=== PATIENT | male | born 1990 | race Caucasian/White ===

== ENCOUNTER 2022-06-13 17:31 | Inpatient (IN) | payer OTHER ==
[~2022-06-13] VITALS: Ht 177.8 cm; Wt 68.2 kg
[2022-06-13] MEDS ORDERED: folic acid 1mg/0.2ml inj IV ONE (18:40)
[2022-06-13] MEDS ORDERED: thiamine 100mg/ml 2ml inj. IV ONE (18:40)
[2022-06-13] MEDS ORDERED: LORazepam 2 mg/ml vial IV ONE ×2 (18:40→19:40)
[2022-06-13] MEDS ORDERED: normal saline 1000ML IV soln IV ONE (18:40)
[2022-06-13 18:59] LABS: BASOPHILS # (AUTO) 0.1 X10'3 (0-0.2); BASOPHILS % (AUTO) 0.7 % (0-1); EOSINOPHILS % (AUTO) 0 % (0-6); HEMOGLOBIN 12.2 g/dl (14.0-17.9); LYMPHOCYTES # (AUTO) 0.6 X10'3 (1.1-4.8); LYMPHOCYTES % (AUTO) 3.6 % (21-51); MEAN CORPUSCULAR HEMOGLOBIN 34.9 PG (27.0-31.0); MEAN CORPUSCULAR HGB CONC 34.9 g/dL (33.0-36.5); MEAN PLATELET VOLUME 7.7 FL (7.4-10.4); MONOCYTES # (AUTO) 1.6 X10'3 (0-0.9); MONOCYTES % (AUTO) 10.8 % (2-12); NEUTROPHILS # (AUTO) 12.9 X10'3 (1.8-7.7); NEUTROPHILS % (AUTO) 84.9 % (42-75); PLATELET COUNT 293 X10'3 (140-440); RED CELL DISTRIBUTION WIDTH 12.3 % (11.5-14.5); WHITE BLOOD COUNT 15.2 X10'3 (4.5-11.0)
[2022-06-13 19:16] LABS: ALANINE AMINOTRANSFERASE 42 U/L (12-78); ALBUMIN 4.2 G/DL (3.4-5.0); ALBUMIN/GLOBULIN RATIO 1.2 (1.1-1.5); ALKALINE PHOSPHATASE 68 IU/L (46-116); ANION GAP 11 (8-16); ASPARTATE AMINO TRANSFERASE 45 U/L (10-37); BLOOD UREA NITROGEN 16 MG/DL (7-18); BUN/CREATININE RATIO 14.8 (5.4-32.0); CALCIUM 9.1 MG/DL (8.5-10.1); CHLORIDE 101 MMOL/L (99-107); CREATININE 1.08 MG/DL (0.60-1.10); GLUCOSE 111 MG/DL (70-104); POTASSIUM 3.8 MMOL/L (3.5-5.1); SODIUM 137 MMOL/L (135-145); TOTAL CARBON DIOXIDE 25.5 MMOL/L (24-32); TOTAL PROTEIN 7.6 G/DL (6.4-8.2); eGFR 80 ML/MIN
[2022-06-13 19:24] LABS: ETHANOL < 0.010 GM/DL (0.0-0.010); MAGNESIUM 2.3 MG/DL (1.5-2.4)
[2022-06-13 19:26] LABS: CREATINE KINASE 1107 U/L (39-308)
--- NOTE | 2022-06-13 20:46 | NUR ---
PT YELLING, KICKING, ACTIVELY HALLUCINATING. ALREADY GIVEN ATIVAN 8MG IV. NEED TO HEAD CT. CALLED PHARMACY TO URGE FOR ATIVAN THERE IS NO ATIVAN IN THE ER.
[2022-06-13] MEDS: LORazepam 2 mg/ml vial IV PRN ×5 (20:59→23:45)
[2022-06-13] MEDS: haloperidol lactate 5mg/ml inj IM PRN ×2 (21:01→23:09)
--- NOTE | 2022-06-13 21:03 | NUR ---
PT MEDICATED. CT CALLED. THEY WILL COME SHORTLY TO TAKE HEAD CT OF PT.
--- NOTE | 2022-06-13 21:25 | NUR ---
TAKING PT TO CT. PT IS STILL NOT SUFFICIENTLY SEDATED. CONSULTED WITH FRANCES; RECOMMENDS TAKING PT TO CT ANYWAY IT IS VITAL TO RULEOUT BRAIN BLEED. CT TEAM HERE. LAW ENFORCEMENT AT BEDSIDE WELL.
[2022-06-13] MEDS: ringers solution, lacted 1,000 ML IV SCH (22:05)
[2022-06-13] MEDS ORDERED: LORazepam 2 mg/ml vial IV PRN ×2 (22:05→22:35)
[2022-06-13] MEDS ORDERED: magnesium 2GM in 50ml NS 50 ML IV PRN (22:05)
[2022-06-13] MEDS ORDERED: magnesium 4gm in 100ml NS 100 ML IV PRN (22:05)
[2022-06-13] MEDS ORDERED: acetaminophen 325mg tablet PO PRN (22:05)
[2022-06-13] MEDS ORDERED: potassium CL 10mEq/100ml bag 100 ML IV PRN (22:05)
[2022-06-13] MEDS ORDERED: NORMAL SALINE IV ONE (22:05)
[2022-06-13] MEDS ORDERED: POTASSIUM BICARB 20meq eff tab 20 MEQ TABLET.EFF PO PRN ×2 (22:05)
[2022-06-13] MEDS ORDERED: sodium phosphate inj. 15 MMOL in dextrose 5%-water 250 ML IV PRN (22:05)
[2022-06-13] MEDS ORDERED: THIAMINE IV ONE (22:05)
[2022-06-13] MEDS ORDERED: dicyclomine 10 MG capsule PO PRN (22:05)
[2022-06-13] MEDS ORDERED: morphine 4 MG/ML inj SYRINge IV PRN (22:05)
[2022-06-13] MEDS ORDERED: Neutra Phos packet PO PRN (22:05)
[2022-06-13] MEDS ORDERED: dextrose 50%-water 50ml dispensing syringe IV PRN (22:05)
[2022-06-13] MEDS ORDERED: sodium phosphate inj. 30 MMOL in dextrose 5%-water 250 ML IV PRN (22:05)
[2022-06-13 22:37] LABS: CLARITY,URINE CLEAR (Clear); COLOR,URINE YELLOW (Yellow); GLUCOSE, URINE NEGATIVE (Neg); KETONES,URINE 15 mg/dl (Neg); LEUKOCYTE ESTERASE ,URINE NEGATIVE (Neg); NITRITES, URINE NEGATIVE (Neg); OCCULT BLOOD,URINE NEGATIVE (Neg); PH,URINE 6.5 (4.8-8.0); PROTEIN,URINE NEGATIVE (Neg); UROBILINOGEN,URINE 0.2 E.U/dL (0.2-1.0)
[2022-06-13 22:40] LABS: UA COLLECTION TYPE STRAIGHT CATH
[2022-06-13 22:42] LABS: URINE AMPHETAMINE SCREEN NEGATIVE (Neg); URINE BARBITUATE SCREEN NEGATIVE (Neg); URINE BENZODIAZEPINES SCREEN POSITIVE (Neg); URINE CANNABINOID SCREEN POSITIVE (Neg); URINE COCAINE SCREEN NEGATIVE (Neg); URINE METHADONE SCREEN NEGATIVE (Neg); URINE OPIATE SCREEN NEGATIVE (Neg); URINE PHENCYCLIDINE SCREEN NEGATIVE (Neg)
--- NOTE | 2022-06-13 23:31 | NUR ---
CALLED PHARMACY. WE RAN OUT OF ATIVAN IN THE ER.
[2022-06-13 23:41] LABS: LIPASE < 50 U/L (73-393)
--- NOTE | 2022-06-13 23:44 | NUR ---
PHARMACY IS PREPARING FOLIC ACID AND THIAMINE
--- NOTE | 2022-06-14 00:19 | NUR ---
PT IS FINALLY SLEEPING. EQUAL RISE AND FALL OF CHEST. LAW ENFORCEMENT AT BEDSIDE.
[2022-06-14] MEDS ORDERED: NORMAL SALINE IV ONE ×2 (00:25→00:31)
[2022-06-14] MEDS ORDERED: THIAMINE IV ONE ×2 (00:25→00:31)
[2022-06-14] MEDS: midazolam 1 mg/ML 2ml injection IV PRN ×3 (00:29→02:25)
--- NOTE | 2022-06-14 00:31 | NUR ---
PT AWAKE AGAIN. ATTEMPTING TO GET OUT OF GURNEY. CAN NOT OBEY SIMPLE COMMANDS.
--- NOTE | 2022-06-14 00:32 | NUR ---
PT MEDICATED WITH FIRST DOSE OF VERSED
[2022-06-14] MEDS: LORazepam 2 mg/ml vial IV PRN ×6 (00:48→19:37)
--- NOTE | 2022-06-14 00:50 | NUR ---
PHARMACY CALLED. PHARMACIST REPORTS HE SPOKE WITH POTATO CHIP PROCESSING SUPERVISOR WAREHOUSE ANALYST, LEV, AND WAS TOLD NOT TO PREPARE FOLIC ACID HE WANTS THAT ORDER DISCONTINUED. LEV ALSO KNOWS PT HAS RECEIVED THIAMINE 200 IVP; STILL WANTS PT TO BE GIVEN THIAMINE 300 IV PER PHARMACIST. PHARMACY HAS PREPARED THE NEW ORDER FOR THIAMINE AND DELIVERED IT TO RN.
--- NOTE | 2022-06-14 00:54 | NUR ---
PT MEDICATED AGAIN. STILL ATTEMPTING TO GET OUT OF GURNEY
--- NOTE | 2022-06-14 01:25 | NUR ---
SECOND DOSE OF VERSED WAS GIVEN. PT IS FINALLY SLEEPING AGAIN.
--- NOTE | 2022-06-14 02:06 | NUR ---
TAKING PT TO CT AGAIN. MEDICATED WITH MORE ATIVAN. LAW ENFORCEMENT AT BEDSIDE,.
--- NOTE | 2022-06-14 02:37 | NUR ---
PT GIVEN THIRD AND FINAL ALLOWED DOSE OF VERSED. PT IS FLAILING HIS ARMS AND LEGS. CALLED SUPERVISOR WIRE ROPE FABRICATION, LEV, AND OBTAINED A TELEPHONE ORDER FOR PRECEDEX TO BE STARTED AT 0.8 AND CAN BE TITRATED TO A MAX OF 1.4. ALSO OBTAINED ORDER FOR SOFT RESTRAINTS I WAS CONCERNED THAT HAND CUFFS ARE TOO SHARP FOR PT.
[2022-06-14] MEDS ORDERED: dexmedetomidin/NS 400mcg/100ml 100 ML IV SCH (02:40)
--- NOTE | 2022-06-14 02:52 | NUR ---
CALLED PHARMACY. THEY ARE PREPARING PRECEDEX WE ARE OUT OF STOCK IN [place].
--- NOTE | 2022-06-14 03:12 | NUR ---
PHARMACY PREPARED PRECEDEX AND DELIVERED MEDICATION. HOLDING IT FOR NOW PT IS SLEEPING. EQUAL RISE AND FALL OF CHEST. PT REMAINS ON LOPPER.
--- NOTE | 2022-06-14 03:14 | NUR ---
Note renata in EDM - 06/14/22 at 0315 by [email or web address] LAW ENFORCEMENT REMAINS AT BEDSIDE WELL. HANDCUFFS ARE OFF. SOFT RESTRAINTS PLACED.
--- NOTE | 2022-06-14 03:15 | NUR ---
LAW ENFORCEMENT AT BEDSIDE.
--- NOTE | 2022-06-14 03:16 | NUR ---
PT HAD TWO PAIRS OF HAND CUFFS ON PREVIOUSLY. LAW ENFORCEMENT REMOVED ONE PAIR AND WE PUT SOFT RESTRAINTS INSTEAD. ONE PAIR OF HAND CUFFS ARE STILL ON LAW ENFORCEMENT STATED IT IS THEIR POLICY FOR PATIENTS IN CUSTODY.
[2022-06-14] MEDS: dexmedetomidine inj. 400 MCG in normal saline 100ml IV soln 96 ML IV SCH ×3 (03:44→17:36)
--- NOTE | 2022-06-14 04:00 | NUR ---
PT STARTED FLAILING HIS ARMS AND MUMBLING TO PEOPLE THAT ARE NOT IN THE ROOM AGAIN. PRECEDEX HAS BEEN STARTED. NOW PT IS SLEEPING. EQUAL RISE AND FALL OF CHEST. STABLE VITALS.
--- NOTE | 2022-06-14 04:39 | NUR ---
PT JERKING AND FLAILING ARMS AGAIN. TITRATED PRECEDEX UP PER PROTOCOL
[2022-06-14] MEDS: ringers solution, lacted 1,000 ML IV SCH (05:08)
--- NOTE | 2022-06-14 05:12 | NUR ---
PT SLEEPING. EQUAL RISE AND FALL OF CHEST. DEMONSTRATOR ELECTRIC GAS APPLIANCES REMAINS ON PT. LAW ENFORCEMENT AT BEDSIDE.
--- NOTE | 2022-06-14 05:25 | NUR ---
CALLED AND GAVE CRACKER OFF, LEV, UPDATE ON PT. PT SLEEPING. EQUAL RISE AND FALL OF CHEST. VITALS STABLE.
--- NOTE | 2022-06-14 05:47 | NUR ---
TITRATED PRECEDEX UP AGAIN PT STARTED FLAILING ARMS AGAIN. PT NOW SLEEPING. EQUAL RISE AND FALL OF CHEST. VITALS STABLE. LAW ENFORCEMENT REMAINS AT BEDSIDE.
--- NOTE | 2022-06-14 07:10 | NUR ---
Called drug and alcohol counselor Dr. Roman, received VO to change IV fluids. Pt to receive D5 banana bag at 125 ml /hr.
[2022-06-14] MEDS: ondansetron/PF 4mg/2ml inj IV PRN (07:51)
[2022-06-14] MEDS ORDERED: folic acid 1mg/0.2ml inj IV SCH (08:00)
[2022-06-14] MEDS: thiamine 100mg tablet PO SCH (08:00)
[2022-06-14] MEDS: K and/or MAG REPLACEMENT MC SCH (08:00)
[2022-06-14] MEDS: folic acid 1mg tablet PO SCH (08:00)
[2022-06-14] MEDS: LORazepam 2 mg/ml vial IV SCH ×3 (08:00→19:23)
[2022-06-14] MEDS ORDERED: thiamine 100mg/ml 2ml inj. IV SCH (08:00)
[2022-06-14 08:06] LABS: BASOPHILS # (AUTO) 0.1 X10'3 (0-0.2); BASOPHILS % (AUTO) 0.8 % (0-1); EOSINOPHILS # (AUTO) 0.1 X10'3 (0-0.9); EOSINOPHILS % (AUTO) 0.5 % (0-6); HEMATOCRIT 31.6 % (42.0-52.0); HEMOGLOBIN 10.6 g/dl (14.0-17.9); LYMPHOCYTES # (AUTO) 1.3 X10'3 (1.1-4.8); LYMPHOCYTES % (AUTO) 11.2 % (21-51); MEAN CORPUSCULAR HEMOGLOBIN 34.9 PG (27.0-31.0); MEAN CORPUSCULAR HGB CONC 33.7 g/dL (33.0-36.5); MEAN CORPUSCULAR VOLUME 103.7 FL (78-98); MEAN PLATELET VOLUME 7.6 FL (7.4-10.4); MONOCYTES # (AUTO) 1.7 X10'3 (0-0.9); MONOCYTES % (AUTO) 14.5 % (2-12); NEUTROPHILS # (AUTO) 8.5 X10'3 (1.8-7.7); PLATELET COUNT 244 X10'3 (140-440); RED BLOOD COUNT 3.05 X10'6 (4.70-6.10); RED CELL DISTRIBUTION WIDTH 12.5 % (11.5-14.5); WHITE BLOOD COUNT 11.6 X10'3 (4.5-11.0)
[2022-06-14] MEDS: dextrose 5%-lactated ringers 1,000 ML IV SCH ×2 (08:09→16:39)
[2022-06-14 08:43] LABS: ALANINE AMINOTRANSFERASE 38 U/L (12-78); ALBUMIN 3.1 G/DL (3.4-5.0); ALKALINE PHOSPHATASE 56 IU/L (46-116); ANION GAP 11 (8-16); ASPARTATE AMINO TRANSFERASE 55 U/L (10-37); BILIRUBIN,TOTAL 1.4 MG/DL (0.1-1.0); BLOOD UREA NITROGEN 10 MG/DL (7-18); BUN/CREATININE RATIO 10.9 (5.4-32.0); CALCIUM 8.3 MG/DL (8.5-10.1); CHLORIDE 108 MMOL/L (99-107); CREATININE 0.92 MG/DL (0.60-1.10); GLUCOSE 77 MG/DL (70-104); MAGNESIUM 1.9 MG/DL (1.5-2.4); POTASSIUM 3.7 MMOL/L (3.5-5.1); SODIUM 140 MMOL/L (135-145); TOTAL CARBON DIOXIDE 20.8 MMOL/L (24-32); TOTAL PROTEIN 6.1 G/DL (6.4-8.2); eGFR > 90 ML/MIN
[2022-06-14 08:48] LABS: CREATINE KINASE 1654 U/L (39-308)
[2022-06-14] MEDS: pantoprazole 40MG/NS 100ML BAG 100 ML IV SCH (09:00)
--- NOTE | 2022-06-14 09:45 | NUR ---
Pt seen by toy assembler Dr. Roman, received VO for pt to change Ativan routine med to Ativan 2mg IV q 6 hrs and pt to remain with ativan protocol
[2022-06-14] MEDS ORDERED: WHISKEY PO SCH (09:55)
[2022-06-14] MEDS ORDERED: NO HOME MEDS (13:03)
[2022-06-14] MEDS: WHISKEY PO SCH (18:30)
--- NOTE | 2022-06-14 19:30 | NUR ---
CIWA SCORE: 35 TREMOR: 6 PAROXYSMAL SWEATS: 4 ANXIETY: 4 aGITATION: 5 TACTILE: 5 AUDITORY: 4 VISUAL:3 ORIENTATION:4 ATIVAN, HALDOL ADMINISTERED
[2022-06-14] MEDS: haloperidol lactate 5mg/ml inj IM PRN ×2 (19:37→21:17)
--- NOTE | 2022-06-14 19:45 | NUR ---
Yin yanez in ED - 06/15/22 at 0054 by ONIEL CIWA SCORE: TREMOR: 6 PAROXYSMAL SWEATS: 4 ANXIETY: 4 aGITATION: 5 TACTILE: 5 AUDITORY: 4 VISUAL:3 ORIENTATION:4 TOTAL: 31 ATIVAN, HALDOL ADMINISTERED
--- NOTE | 2022-06-14 20:15 | NUR ---
CIWA SCORE OF 31 TREMOR:5 PAROXYSMAL SWEATS: 3 ANXIETY 2 AGITATION:5 TACTILE: 4 AUDITORY:4 VISUAL: 5 ORIENTATION: 3
--- NOTE | 2022-06-14 20:15 | NUR ---
Yin yanez in ED - 06/15/22 at 0053 by ONIEL WA SCORE OF 31 TREMOR:5 PAROXYSMAL SWEATS: 3 ANXIETY 2 AGITATION:5 TACTILE: 4 AUDITORY:4 VISUAL: 5 ORIENTATION: 3
[2022-06-14] MEDS ORDERED: risperiDONE 0.5mg tablet PO SCH (21:00)
--- NOTE | 2022-06-14 22:50 | NUR ---
PT TORE SAN PORT CAUSING INTERNAL BALLOON TO DEFLATE. REPLACED SAN CATH 16FR WITHOUT DIFFICULTY. PT TOLERATED PROCEDURE WELL. CONSTRUCTION PRODUCER MAINTAINED
--- NOTE | 2022-06-15 | NUR ---
CIWA SCORE: 17 TREMOR: 3 PAROXYSMAL SWEATS: 0 ANXIETY: 2 AGITATION: 3 TACTILE: 2 AUDITORY: 2 VISUAL:1 ORIENTATION:4 TOTAL:
[2022-06-15] MEDS: dextrose 5%-lactated ringers 1,000 ML IV SCH ×4 (00:17→22:35)
[2022-06-15] MEDS: dexmedetomidine inj. 400 MCG in normal saline 100ml IV soln 96 ML IV SCH ×2 (00:57→08:18)
[2022-06-15] MEDS: LORazepam 2 mg/ml vial IV SCH ×2 (01:26→07:23)
[2022-06-15] MEDS: ondansetron/PF 4mg/2ml inj IV PRN (02:36)
[2022-06-15] MEDS: LORazepam 2 mg/ml vial IV PRN ×2 (02:36→07:25)
[2022-06-15] MEDS: haloperidol lactate 5mg/ml inj IM PRN (02:36)
--- NOTE | 2022-06-15 02:45 | NUR ---
CIWA SCORE OF 31 TREMOR:5 PAROXYSMAL SWEATS: 3 ANXIETY 4 AGITATION:3 TACTILE: 4 AUDITORY:4 VISUAL: 5 ORIENTATION: 3 ATIVAN & HALDOL ADMINISTERED ORDERED
--- NOTE | 2022-06-15 03:38 | NUR ---
RESTRAINTS REMAI IN PLACE ORDERED, RELEASED Q 2HR BRIEFLY, CIRCULATION AD PP +
--- NOTE | 2022-06-15 07:00 | NUR ---
's deputy at the bedside. Pt is in handcuffs that are attached to a waist chain. Pt is confused and picking and pulling at lines. Torres is intact. Wearing B LE knee immobilizers.
[2022-06-15] MEDS: pantoprazole 40MG/NS 100ML BAG 100 ML IV SCH (07:23)
[2022-06-15] MEDS: thiamine 100mg tablet PO SCH (07:23)
--- NOTE | 2022-06-15 07:32 | NUR ---
CIWA=30
[2022-06-15 07:42] LABS: BASOPHILS # (AUTO) 0.1 X10'3 (0-0.2); BASOPHILS % (AUTO) 0.6 % (0-1); EOSINOPHILS # (AUTO) 0.1 X10'3 (0-0.9); HEMATOCRIT 31.2 % (42.0-52.0); HEMOGLOBIN 10.6 g/dl (14.0-17.9); LYMPHOCYTES # (AUTO) 1.6 X10'3 (1.1-4.8); MEAN CORPUSCULAR HEMOGLOBIN 34.8 PG (27.0-31.0); MEAN CORPUSCULAR HGB CONC 33.9 g/dL (33.0-36.5); MEAN CORPUSCULAR VOLUME 102.8 FL (78-98); MEAN PLATELET VOLUME 7.7 FL (7.4-10.4); MONOCYTES # (AUTO) 2.1 X10'3 (0-0.9); NEUTROPHILS # (AUTO) 8.3 X10'3 (1.8-7.7); NEUTROPHILS % (AUTO) 68.4 % (42-75); PLATELET COUNT 259 X10'3 (140-440); RED BLOOD COUNT 3.04 X10'6 (4.70-6.10); RED CELL DISTRIBUTION WIDTH 12.5 % (11.5-14.5); WHITE BLOOD COUNT 12.2 X10'3 (4.5-11.0)
[2022-06-15 07:55] LABS: ALANINE AMINOTRANSFERASE 48 U/L (12-78); ALBUMIN 2.9 G/DL (3.4-5.0); ALBUMIN/GLOBULIN RATIO 0.9 (1.1-1.5); ALKALINE PHOSPHATASE 62 IU/L (46-116); ANION GAP 9 (8-16); ASPARTATE AMINO TRANSFERASE 108 U/L (10-37); BILIRUBIN,TOTAL 1.1 MG/DL (0.1-1.0); BLOOD UREA NITROGEN 6 MG/DL (7-18); BUN/CREATININE RATIO 7.1 (5.4-32.0); CALCIUM 8.3 MG/DL (8.5-10.1); CHLORIDE 104 MMOL/L (99-107); CREATININE 0.84 MG/DL (0.60-1.10); GLUCOSE 100 MG/DL (70-104); MAGNESIUM 1.8 MG/DL (1.5-2.4); PHOSPHORUS 2.6 MG/DL (2.3-4.5); POTASSIUM 3.6 MMOL/L (3.5-5.1); SODIUM 136 MMOL/L (135-145); TOTAL CARBON DIOXIDE 23.3 MMOL/L (24-32); eGFR > 90 ML/MIN
[2022-06-15] MEDS: K and/or MAG REPLACEMENT MC SCH (08:00)
[2022-06-15] MEDS: folic acid 1mg tablet PO SCH (08:00)
[2022-06-15] MEDS: WHISKEY PO SCH (08:10)
--- NOTE | 2022-06-15 08:36 | NUR ---
Attempted to given report. Nurse is not ready.
[2022-06-15 08:48] LABS: TOTAL CELLS COUNTED 100
[2022-06-15 08:49] LABS: PLATELET ESTIMATE NORMAL
--- NOTE | 2022-06-15 08:51 | NUR ---
Report given to AMENA Hamm in PCU.
[2022-06-15 09:15] VITALS: BP 138/83
[2022-06-15 12:00] VITALS: BP 127/82
[2022-06-15 16:00] VITALS: BP 138/79
[2022-06-15] MEDS: nicotine 14mg patch - 24hr TD SCH (16:16)
[2022-06-15 18:00] VITALS: BP 122/80
--- NOTE | 2022-06-15 18:44 | NUR ---
Patient in room PCU 3010. I have received report from Noris BECKWITH and had the opportunity to ask questions and assume patient care.
[2022-06-15] MEDS ORDERED: HYDROcodone/acetaminophen 5mg/325mg tablet PO PRN (20:40)
[2022-06-15] MEDS ORDERED: HYDROcodone/acetaminophen 10/325mg tab PO PRN (20:40)
--- NOTE | 2022-06-15 20:40 | NUR ---
Spoke to Dr Simpson regarding oral pain medication. Patient has tylenol only ordered. gave orders for [place] 5 and [place] 10.
[2022-06-15 22:00] VITALS: BP 124/79
[2022-06-16 02:00] VITALS: BP 122/81
--- NOTE | 2022-06-16 05:01 | NUR ---
Agree with Carmencita ZARCO except in these areas: Pt has bilateral knee immobilizers and he has shackles to both wrists and ankles with assistant softball coach at bedside.
[2022-06-16 06:00] VITALS: BP 120/77
--- NOTE | 2022-06-16 06:24 | NUR ---
Problems reprioritized. Patient report given, questions answered & plan of care reviewed with Noris BECKWITH.
[2022-06-16 06:41] LABS: BASOPHILS # (AUTO) 0.1 X10'3 (0-0.2); BASOPHILS % (AUTO) 0.6 % (0-1); EOSINOPHILS # (AUTO) 0.3 X10'3 (0-0.9); HEMATOCRIT 30.3 % (42.0-52.0); HEMOGLOBIN 10.7 g/dl (14.0-17.9); LYMPHOCYTES # (AUTO) 1.5 X10'3 (1.1-4.8); LYMPHOCYTES % (AUTO) 18.8 % (21-51); MEAN CORPUSCULAR HGB CONC 35.4 g/dL (33.0-36.5); MEAN CORPUSCULAR VOLUME 101.7 FL (78-98); MEAN PLATELET VOLUME 7.6 FL (7.4-10.4); MONOCYTES # (AUTO) 1.1 X10'3 (0-0.9); MONOCYTES % (AUTO) 13.5 % (2-12); NEUTROPHILS # (AUTO) 5.1 X10'3 (1.8-7.7); NEUTROPHILS % (AUTO) 63.1 % (42-75); PLATELET COUNT 305 X10'3 (140-440); RED BLOOD COUNT 2.98 X10'6 (4.70-6.10); RED CELL DISTRIBUTION WIDTH 12.5 % (11.5-14.5); WHITE BLOOD COUNT 8.1 X10'3 (4.5-11.0)
[2022-06-16 06:51] LABS: ALANINE AMINOTRANSFERASE 38 U/L (12-78); ALBUMIN 2.4 G/DL (3.4-5.0); ALBUMIN/GLOBULIN RATIO 0.8 (1.1-1.5); ALKALINE PHOSPHATASE 69 IU/L (46-116); ANION GAP 4 (8-16); ASPARTATE AMINO TRANSFERASE 55 U/L (10-37); BILIRUBIN,TOTAL 0.7 MG/DL (0.1-1.0); BLOOD UREA NITROGEN 5 MG/DL (7-18); BUN/CREATININE RATIO 6.3 (5.4-32.0); CALCIUM 8.1 MG/DL (8.5-10.1); CHLORIDE 107 MMOL/L (99-107); CREATININE 0.79 MG/DL (0.60-1.10); GLUCOSE 118 MG/DL (70-104); MAGNESIUM 1.8 MG/DL (1.5-2.4); PHOSPHORUS 4.1 MG/DL (2.3-4.5); POTASSIUM 3.2 MMOL/L (3.5-5.1); SODIUM 139 MMOL/L (135-145); TOTAL CARBON DIOXIDE 28.2 MMOL/L (24-32); TOTAL PROTEIN 5.3 G/DL (6.4-8.2); eGFR > 90 ML/MIN
[2022-06-16] MEDS: dextrose 5%-lactated ringers 1,000 ML IV SCH ×2 (08:00→16:00)
[2022-06-16] MEDS: K and/or MAG REPLACEMENT MC SCH (08:00)
[2022-06-16] MEDS: nicotine 14mg patch - 24hr TD SCH (08:25)
[2022-06-16] MEDS: pantoprazole 40MG/NS 100ML BAG 100 ML IV SCH (08:26)
[2022-06-16] MEDS: thiamine 100mg tablet PO SCH (08:26)
[2022-06-16] MEDS: folic acid 1mg tablet PO SCH (08:26)
[2022-06-16 11:00] VITALS: BP 138/78
[2022-06-16 15:00] VITALS: BP 134/89
--- NOTE | 2022-06-16 17:46 | NUR ---
Patient cleared for discharge. Patient was seen by PT and will utilize the walkers and wheelchairs in [facility]. Torres discontinued as ordered. Patient able to urinate with no residual post removal. Patient's IV and tele discontinued. No belongings with him. Patient aox4, vitals stable, denies pain. Patient verbalized understanding of discharge instructions. stated that nurses at facility would schedule follow up appointments with him for ortho
== END 2022-06-16 17:48 | DRG 563 ==
LOC: ER 17:33 → EEVIPCON 22:30 → ED HOLD 22:30 → EDBEDREQSVC 06-15 04:41 → EDBEDREQDT 06-15 04:41 → EDBEDREQ 06-15 04:41 → EDBEDREQTM 06-15 04:41 → PCU 3S 06-15 09:08
PROVIDERS: ADMIT Hospitalist; ATTEND Hospitalist
DX: S82.141A Displaced bicondylar fracture of right tibia, initial encounter for closed fracture (principal); M62.82 Rhabdomyolysis; F10.131 Alcohol abuse with withdrawal delirium; D64.9 Anemia, unspecified; F17.200 Nicotine dependence, unspecified, uncomplicated; W17.89XA Other fall from one level to another, initial encounter; I10 Essential (primary) hypertension; Y93.89 Activity, other specified; Y92.89 Other specified places as the place of occurrence of the external cause; Y99.8 Other external cause status
CPT/HCPCS: 36415; 70450; 71045; 72125; 73564; 73700; 80053; 80305; 80320; 81003; 82550; 82948; 83690; 83735; 84100; 84439; 84443; 84484; 85007; 85025; 85610; 87081; 93005; 97116; 97161; 97530; 99291; 99292; A4314; A4565; A5200; C1758; C9113; G0378; J1630; J2060; J2250; J2270; J2405; J3411; J3490; J7030; J7120; J7121